=== PATIENT | female | born 1960 | race African-American/Black ===

== ENCOUNTER → 2018-05-05 | Outpatient (CLI) | payer BC ==
[2014-12-29 12:20] VITALS: BP 123/71
[~2018-05-05] MED LIST: ALBU6.7H IH; ALBU8.5H6 IH; CALC-250 PO; CEFT1FRO2 IV; CYCL5TAB PO; GABA-585 PO; HYDR-2762 PO; LISI-334 PO; METH-37 PO; METH4TAB2 PO; OMEP20CA9 PO; ORPH-16 PO; PANT20TA3 PO; POTA10CA PO; PRED50TA PO; TRAM50TA PO; VANC1.5P20 IV
--- NOTE | 2018-05-05 13:25 | RAD ---
EXAM: Abdomen sonogram. HISTORY: Bloating. TECHNIQUE: Sonographic imaging of the abdomen was performed. COMPARISON: CT dated 06/04/2016. FINDINGS: The liver is normal in size. There is a 1.0 cm hepatic cyst. No suspicious hepatic lesion is seen. There is slight hepatic steatosis. The gallbladder is unremarkable. The common bile duct is normal in caliber. The right kidney is normal in size. There is no hydronephrosis. The pancreas is partially obscured due to bowel gas. The inferior vena cava is patent. The aorta is normal in caliber. IMPRESSION: 1. Slight hepatic steatosis. 2. Small hepatic cyst. 3. Partially obscured pancreas due to bowel gas. Electronically signed by: Marleni Archuleta MD (05/05/2018 1:22 PM) [facility]
== END | disposition home or self-care (01) ==
LOC: US 08:55
PROVIDERS: ATTEND Internal Medicine Gastroenterology
DX: K76.89 Other specified diseases of liver (principal); J44.9 Chronic obstructive pulmonary disease, unspecified; Z83.3 Family history of diabetes mellitus; Z80.0 Family history of malignant neoplasm of digestive organs; Z82.49 Family history of ischemic heart disease and other diseases of the circulatory system
CPT/HCPCS: 76705

== ENCOUNTER → 2018-07-04 | Day surgery (SDC) | payer BC ==
[~2018-07-04] MED LIST changes: +ALBUTEROL SULFATE 2.5 MG/3 ML NEBU. NEB PRN; +ATROPINE 0.5 MG/5 ML DISP.SYRIN. IV PRN; +DICL75TA PO; +FURO-69 PO; +HYDR-2758 PO; +IV RINGERS SOLUTION,LACTATED 1,000 ML IV SCH; +LIDOCAINE 2% PF Vial for OR 5 ML VIAL. ONE; +NALOXONE 0.4 MG/ML VIAL. IV PRN; +ONDANSETRON PF 4 MG/2 ML VIAL. IV PRN; +PROPOFOL 40 ML IV ONE; +TIZA4TAB PO
[2018-07-04 14:16] VITALS: BP 119/79
== END | disposition home or self-care (01) ==
LOC: SURG 12:53
PROVIDERS: ATTEND Internal Medicine Gastroenterology
DX: K21.9 Gastro-esophageal reflux disease without esophagitis (principal); I10 Essential (primary) hypertension; J45.909 Unspecified asthma, uncomplicated; E03.9 Hypothyroidism, unspecified; Z86.010 Personal history of colon polyps; Z98.51 Tubal ligation status; Z88.1 Allergy status to other antibiotic agents; Z88.2 Allergy status to sulfonamides; Z88.8 Allergy status to other drugs, medicaments and biological substances; Z80.0 Family history of malignant neoplasm of digestive organs; Z98.890 Other specified postprocedural states
CPT/HCPCS: 43239; J7120

== ENCOUNTER → 2018-08-29 | Outpatient (CLI) | payer BC ==
[2018-07-04 14:16] VITALS: BP 119/79
[~2018-08-29] VITALS: Ht 160 cm; Wt 70.8 kg
[~2018-08-29] MED LIST changes: +ALBU2.5V8 IH; -ALBU6.7H IH; -ALBUTEROL SULFATE 2.5 MG/3 ML NEBU. NEB PRN; -ATROPINE 0.5 MG/5 ML DISP.SYRIN. IV PRN; +HYDR-2155 PO; -HYDR-2758 PO; -HYDR-2762 PO; +HYDR-2765 PO; -IV RINGERS SOLUTION,LACTATED 1,000 ML IV SCH; -LIDOCAINE 2% PF Vial for OR 5 ML VIAL. ONE; -NALOXONE 0.4 MG/ML VIAL. IV PRN; -ONDANSETRON PF 4 MG/2 ML VIAL. IV PRN; -PROPOFOL 40 ML IV ONE; +SINCALIDE 1.42 MCG in IV NORMAL SALINE 50ML 30 ML IV ONE
--- NOTE | 2018-08-29 12:06 | RAD ---
EXAM: Nuclear hepatobiliary scan. HISTORY: Pain. TECHNIQUE: Following intravenous administration of 5.4 mCi Tc 99m Choletec, anterior images of the abdomen were obtained at five minute intervals through one hour. Subsequently, 1.42 mcg CCK was administered and additional images to assess gallbladder ejection fraction were obtained. FINDINGS: There is prompt radiotracer uptake by the liver. No focal defect is seen. There is normal excretion into the biliary tree. The gallbladder is visualized within 10 minutes and there is free flow into the duodenum. The gallbladder ejection fraction is 31%. IMPRESSION: Normal radionuclide biliary scan. Electronically signed by: Marleni Archuleta MD (08/29/2018 12:02 PM) [facility]
== END | disposition home or self-care (01) ==
LOC: NM 08:59
PROVIDERS: ATTEND Internal Medicine Gastroenterology
DX: R14.0 Abdominal distension (gaseous) (principal); R10.84 Generalized abdominal pain; R10.13 Epigastric pain
CPT/HCPCS: 78227; A9537; J2805

== ENCOUNTER → 2018-09-05 | Outpatient (CLI) | payer BC ==
[2018-07-04 14:16] VITALS: BP 119/79
[~2018-09-05] MED LIST changes: -SINCALIDE 1.42 MCG in IV NORMAL SALINE 50ML 30 ML IV ONE
--- NOTE | 2018-09-06 08:59 | RAD ---
Radionuclide gastric emptying study, 09/05/2018: HISTORY: Epigastric pain and bloating The study was performed utilizing a solid test meal radiolabeled with 2.0 mCi of technetium 99m sulfur colloid. The following gastric retention values were obtained: 1 hour-98 percent (normal is less than 90 percent) 2 hours-64 percent (normal is less than 60 percent) 3 hours-30 percent (normal is less than 30 percent) 4 hours-19 percent (normal is less than 10 percent) IMPRESSION: Mildly delayed gastric emptying as described above. Electronically signed by: Tomás Fung MD (09/06/2018 8:54 AM) [facility]
== END | disposition home or self-care (01) ==
LOC: NM 08:45
PROVIDERS: ATTEND Internal Medicine Gastroenterology
DX: K30 Functional dyspepsia (principal)
CPT/HCPCS: 78264; A9541

== ENCOUNTER 2018-09-30 02:59 | Inpatient (IN) | payer BC ==
[2018-09-30] VITALS (7 sets, daily range): BP systolic 101–144; BP diastolic 67–85
[~2018-09-30] VITALS: Ht 160 cm; Wt 68.7 kg
[~2018-09-30 02:59] MED LIST changes: +OMEP20CA10 PO; -OMEP20CA9 PO; -TIZA4TAB PO; +TIZA4TAB2 PO
[2018-09-30] MEDS ORDERED: IV NORMAL SALINE 1,000ML 1,000 ML IV ONE (03:15)
--- NOTE | 2018-09-30 03:47 | PHYS DOC ---
Past History Past Medical History: GERD, Other Past Surgical History: Other Alcohol Use: None Drug Use: None Adult General Chief Complaint Chief Complaint: MECHANICAL FALL HPI HPI Patient is a 58 year old female who presents with complaint of a possible syncopal episode. Patient states that she awoke this morning stating that she did not feel well. The patient tried to get up and go use the restroom and became very lightheaded and dizzy. She states that she called out to her daughter to try to get help. She states the next thing she knew she was on the floor. Patient states that she scratched her elbow but otherwise denies any pain at this time. Patient does state that she is very lightheaded and feels sick to her stomach. Patient notes that over the past 24 hours she has had worsening diarrhea and has had too numerous to count stools during that time. Patient states that she has tried to keep up with her fluid intake. Denies vomiting. Not currently having any abdominal pain or chest pain. States that she has felt feverish but has not measured her temperature at home. Review of Systems Review of Systems Constitutional: Subjective fevers[] Eyes: Denies change in visual acuity, redness, or eye pain [] HENT: Denies nasal congestion or sore throat [] Respiratory: Denies cough or shortness of breath [] Cardiovascular: Denies chest pain or edema[] GI: Nausea, diarrhea, denies abdominal pain or vomiting[] : Denies dysuria or hematuria [] Musculoskeletal: Denies back pain or joint pain [] Integument: Denies rash or skin lesions [] Neurologic: Dizziness, denies focal weakness or sensory changes [] All other systems were reviewed and found to be within normal limits, except as documented in this note. Current Medications Current Medications Current Medications Medications (Trade) Dose Ordered Sig/Cassi Start Time Stop Time Status Last Admin Dose Admin Sodium Chloride 1,000 ml @ 1,000 mls/hr 1X ONCE 09/30/18 03:15 09/30/18 04:14 Allergies Allergies Allergies Coded Allergies Type Severity Reaction Last Updated Verified SCOTT Inhibitors Allergy Intermediate Swelling 09/30/18 Yes Sulfa (Sulfonamide Antibiotics) Allergy Intermediate Rash 09/30/18 Yes erythromycin base Allergy Intermediate 09/30/18 Yes vancomycin Adverse Reaction Intermediate Swelling 09/30/18 Yes Physical Exam Physical Exam Constitutional: Alert, afebrile, appears ill. [] HENT: Normocephalic, atraumatic, bilateral external ears normal, oropharynx dry , no oral exudates, nose normal. [] Eyes: PERRLA, EOMI, conjunctiva normal, no discharge. [] Neck: Normal range of motion, no tenderness, supple, no stridor. [] Cardiovascular: Bradycardia, regular rhythm, no murmur [] Lungs & Thorax: Bilateral breath sounds clear to auscultation [] Abdomen: Bowel sounds normal, soft, no tenderness, no masses, no pulsatile masses. [] Skin: Warm, dry, no erythema, no rash. [] Back: No tenderness, no CVA tenderness. [] Extremities: No tenderness, no cyanosis, no clubbing, ROM intact, no edema. [] Neurologic: Alert and oriented X 3, normal motor function, normal sensory function, no focal deficits noted. [] Current Patient Data Vital Signs Reviewed by me: Patient noted to be hypotensive and bradycardic Lab Results Laboratory Tests Test 09/30/18 03:30 White Blood Count 10.5 x10^3/uL Red Blood Count 4.83 x10^6/uL Hemoglobin 11.9 g/dL Hematocrit 37.5 % Mean Corpuscular Volume 78 fL Mean Corpuscular Hemoglobin 25 pg Mean Corpuscular Hemoglobin Concent 32 g/dL Red Cell Distribution Width 16.2 % Platelet Count 266 x10^3/uL Neutrophils (%) (Auto) 59 % Lymphocytes (%) (Auto) 31 % Monocytes (%) (Auto) 8 % Eosinophils (%) (Auto) 2 % Basophils (%) (Auto) 0 % Neutrophils # (Auto) 6.2 x10^3uL Lymphocytes # (Auto) 3.2 x10^3/uL Monocytes # (Auto) 0.9 x10^3/uL Eosinophils # (Auto) 0.2 x10^3/uL Basophils # (Auto) 0.0 x10^3/uL Sodium Level 143 mmol/L Potassium Level 2.4 mmol/L Chloride Level 105 mmol/L Carbon Dioxide Level 29 mmol/L Anion Gap 9 Blood Urea Nitrogen 16 mg/dL Creatinine 0.8 mg/dL Estimated GFR (Cockcroft-Gault) 89.8 BUN/Creatinine Ratio 20 Glucose Level 108 mg/dL Calcium Level 8.0 mg/dL Magnesium Level 1.9 mg/dL Total Bilirubin 0.2 mg/dL Aspartate Amino Transf (AST/SGOT) 16 U/L Alanine Aminotransferase (ALT/SGPT) 29 U/L Alkaline Phosphatase 84 U/L Total Protein 7.8 g/dL Albumin 3.2 g/dL Albumin/Globulin Ratio 0.7 Current Medications Medications (Trade) Dose Ordered Sig/Cassi Route PRN Reason Start Time Stop Time Status Last Admin Dose Admin Sodium Chloride 1,000 ml @ 1,000 mls/hr 1X ONCE IV 09/30/18 03:15 09/30/18 04:15 DC Diphenhydramine HCl (Benadryl) 12.5 mg 1X ONCE IVP 09/30/18 04:15 09/30/18 04:16 DC Potassium Chloride (Klor-Con) 40 meq 1X ONCE PO 09/30/18 04:15 09/30/18 04:16 UNV EKG EKG Interpreted by me: Heart rate 50, sinus bradycardia, normal intervals, normal axis, no acute ST/T-wave abnormalities present[] Radiology/Procedures Radiology/Procedures Not performed[] Course & Med Decision Making Course & Med Decision Making Pertinent Labs and Imaging studies reviewed. (See chart for details) Patient started on IV fluids in the emergency department. Patient's lab work showed a critically low potassium level at 2.4. After initiation of IV fluids, the patient's blood pressure has improved to 134/54. Given the very low potassium level in addition to patient's lightheadedness and recent syncopal episode, the patient will need admission to the hospital for re-supplementation of potassium and for rehydration. I spoke with Dr. Rico, patient's primary physician, who has accepted care of patient in hospital. Dragon Disclaimer Dragon Disclaimer This electronic medical record was generated, in whole or in part, using a voice recognition dictation system. Departure Departure: Impression: Primary Impression: Syncope Additional Impressions: Hypokalemia Dehydration Disposition: 09 ADMITTED INPATIENT Admitting Physician: Zakia Rico Condition: STABLE Referrals: ZAKIA RICO MD (PCP) Problem Qualifiers Primary Impression: Syncope Syncope type: unspecified Qualified Codes: R55 - Syncope and collapse AUSTIN TERRY MD Sep 30, 2018 03:47
[2018-09-30 03:49] LABS: BASO % 0 % (0-3); EOS # 0.2 x10^3/uL (0.0-0.7); EOS % 2 % (0-3); HEMATOCRIT 37.5 % (36.0-47.0); HEMOGLOBIN 11.9 g/dL (12.0-15.5); LYMPH # 3.2 x10^3/uL (1.0-4.8); LYMPH % 31 % (24-48); MEAN CORPUSCULAR HEMOGLOBIN 25 pg (25-35); MEAN CORPUSCULAR HGB CONC 32 g/dL (31-37); MEAN CORPUSCULAR VOLUME 78 fL (79-100); MONO # 0.9 x10^3/uL (0.0-1.1); MONO % 8 % (0-9); NEUT # 6.2 x10^3uL (1.8-7.7); NEUT % 59 % (31-73); PLATELET COUNT 266 x10^3/uL (140-400); RED BLOOD COUNT 4.83 x10^6/uL (3.50-5.40); RED CELL DISTRIBUTION WIDTH 16.2 % (11.5-14.5); WHITE BLOOD COUNT 10.5 x10^3/uL (4.0-11.0)
[2018-09-30 04:01] LABS: ALBUMIN 3.2 g/dL (3.4-5.0); ALBUMIN/GLOBULIN RATIO 0.7 (1.0-1.7); CREATININE 0.8 mg/dL (0.6-1.0); GFR 89.8; TOTAL BILIRUBIN 0.2 mg/dL (0.2-1.0); TOTAL PROTEIN 7.8 g/dL (6.4-8.2)
[2018-09-30 04:03] LABS: POTASSIUM 2.4 mmol/L (3.5-5.1)
[2018-09-30] MEDS ORDERED: POTASSIUM CHLORIDE 20 MEQ TABLET.ER. PO ONE ×2 (04:15→04:36)
[2018-09-30] MEDS ORDERED: diphenhydrAMINE 50 MG/ML VIAL IVP ONE (04:15)
[2018-09-30] MEDS ORDERED: ONDANSETRON PF 4 MG/2 ML VIAL. IV PRN (04:30)
[2018-09-30] MEDS ORDERED: ACETAMINOPHEN 325 MG TABLET PO PRN (04:30)
[2018-09-30] MEDS ORDERED: POTASSIUM CL 20MEQ D5-0.45NACL 1,000 ML IV ONE ×2 (04:30→04:36)
[2018-09-30] MEDS ORDERED: ONDANSETRON PF 4 MG/2 ML VIAL. ONE (04:36)
[2018-09-30] MEDS ORDERED: ACETAMINOPHEN 325 MG TABLET PO ONE (04:36)
[2018-09-30 05:33] LABS: BACTERIA,URINE FEW /HPF (0-FEW); BILIRUBIN,URINE NEG (NEG); CLARITY,URINE CLEAR; COLOR,URINE STRAW; GLUCOSE,URINE NEG (NEG); HYALINE CASTS, URINE OCC /HPF; NITRITE,URINE NEG (NEG); RBC,URINE OCC /HPF (0-2); SQUAMOUS EPITHELIAL CELL,UR OCC /LPF; UROBILINOGEN,URINE 0.2 mg/dL (0.2 mg/dL)
[2018-09-30] MEDS ORDERED: GABA-585 PO (05:34)
--- NOTE | 2018-09-30 06:14 | EKG ---
[address] [address] Test Date: 2018-09-30 Test Time: 03:16:13 Pat Name: JESSE CHOI Department: Room: 122 A Gender: F Clinical Informatics Specialist: RHETT : 1960 Requested By: AUSTIN TERRY Order Number: [id number] Reading MD: Kings Griffin MD Measurements Intervals [place] Rate: 50 P: 51 [place]: 138 QRS: 31 QRSD: 78 T: 78 QT: 466 QTc: 428 Interpretive Statements SINUS RHYTHM NON-SPECIFIC ST/T CHANGES Electronically Signed On 10-05-2018 9:40:56 MEDICATION TECH by Kings Griffin MD
[2018-09-30] MEDS ORDERED: PRED20TA PO (07:34)
[2018-09-30] MEDS ORDERED: ELECTROLYTE (ICU) PROTOCOL. MC PRN (09:00)
[2018-09-30] MEDS: predniSONE 20 MG TABLET PO SCH (09:00)
[2018-09-30] MEDS ORDERED: HYDROcodone/APAP 5/325MG 1 TAB TABLET PO PRN ×2 (09:00→12:45)
[2018-09-30] MEDS ORDERED: FUROSEMIDE 20 MG TABLET PO SCH (09:00)
[2018-09-30] MEDS ORDERED: ALBUTEROL SULFATE 2.5 MG/3 ML NEBU. IH PRN (09:00)
[2018-09-30] MEDS: GABAPENTIN 100 MG CAPSULE. PO SCH ×3 (09:30→21:00)
[2018-09-30] MEDS ORDERED: CYCLOBENZAPRINE 10 MG TABLET. PO PRN (09:45)
[2018-09-30] MEDS ORDERED: PANTOPRAZOLE 40 MG TABLET. PO SCH (09:45)
[2018-09-30] MEDS ORDERED: tiZANidine 4 MG TABLET. PO PRN (09:45)
[2018-09-30] MEDS ORDERED: DICLOFENAC SODIUM 25 MG TABLET.DR PO SCH (09:45)
[2018-09-30] MEDS ORDERED: ACETAMINOPHEN/CODEINE 300/30MG TABLET PO PRN (12:30)
[2018-09-30] MEDS ORDERED: ONDANSETRON ODT 4 MG TAB.RAPDIS PO PRN (12:30)
[2018-09-30] MEDS ORDERED: DIPHENOXYLATE/ATROPINE TABLET. PO PRN (12:30)
[2018-09-30] MEDS ORDERED: ZOLPIDEM 5 MG TABLET. PO PRN (12:45)
[2018-09-30] MEDS ORDERED: IOHEXOL 350 MG/ML 100 ML VIAL. IV ONE ×2 (13:45→15:45)
[2018-09-30] MEDS ORDERED: CONTRAST GIVEN MC PRN (13:45)
[2018-09-30] MEDS ORDERED: IOHEXOL 300 MG/ML 75 ML VIAL. IV ONE (13:45)
[2018-09-30] MEDS ORDERED: IOHEXOL 240 MG/ML 50ML VIAL. PO ONE (13:45)
[2018-09-30 15:23] LABS: FECAL OB PT NEGATIVE (NEG)
--- NOTE | 2018-09-30 16:22 | RAD ---
CT abdomen and pelvis with contrast PQRS statement: CT scans at this facility use dose reduction including either automated exposure control, iterative reconstructions, and /or weight based radiation dosing via mA and kV modification when appropriate to reduce radiation dose to as low as reasonably achievable. HISTORY: Syncope, chest and abdomen pain, elevated d-dimer and diarrhea. TECHNIQUE: Helical CT imaging of the abdomen and pelvis was acquired with 100 mL Isovue 370 intravenous contrast. Abdomen findings: Lower lumbar disc bulges and facet arthritis. Lung bases unremarkable. Mild distention of the right renal upper pole calyces although similar the prior exam from 2016 of doubtful significance. No hydronephrosis. No abnormal nephrogram. Subcentimeter right renal midpole hypodensity too small to characterize most likely small cyst. Left kidney, adrenals, pancreas, gallbladder, liver and spleen are unremarkable. Fluid and contrast throughout the large and small bowel, no wall thickening or inflammatory edema evident. No bowel obstruction. Appendix is surgically absent or hypoplastic and obscured by surrounding bowel loops. No abdominal fluid or adenopathy. Pelvis findings: Fluid throughout the rectosigmoid colon without inflammatory change. Uterus, ovaries, bladder and bones are unremarkable. No pelvic fluid or adenopathy. IMPRESSION: Fluid throughout the large and small bowel without obstruction or inflammatory change, could be related to the history of diarrhea or low-grade enterocolitis. Electronically signed by: Carlito Benitez MD (09/30/2018 4:17 PM) [facility] [place]
--- NOTE | 2018-09-30 16:22 | RAD ---
CTA scan of the Chest with Contrast (Pulmonary Embolism protocol) 09/30/2018 Clinical History: Syncope. Chest pain. Elevated d-dimer. Technique: After the intravenous administration of 75 cc of Omnipaque 300, contiguous, 0.625 mm axial sections were obtained through the chest. 2 mm axial and 3D MIP coronal and coronal reconstructed images were obtained. One or more of the following individualized dose reduction techniques were utilized for this study: 1. Automated exposure control. 2. Adjustment of the mA and/or kV according to patient size. 3. Use of iterative reconstruction technique. Findings: There is suboptimal opacification of the pulmonary arteries with contrast limiting the study to some degree. No filling defect is seen within the major branches of either pulmonary artery. There is no CT evidence of pulmonary embolism. The heart is borderline enlarged. The thoracic aorta is tortuous but tapers normally. Atherosclerotic calcification thoracic aorta is seen. Minimal dependent subsegmental atelectasis is seen involving both lungs. No area of consolidation, pleural effusion or pneumothorax is seen. Impression: There is no CT evidence of pulmonary embolism. Electronically signed by: Chaim Coelol MD (09/30/2018 4:17 PM) [facility]
--- NOTE | 2018-09-30 16:33 | RAD ---
Left elbow x-rays 3 views HISTORY: Fall on left elbow, left elbow pain with abrasions. FINDINGS: No abnormal elevation of the fat pads to suggest a joint effusion. Small bone spur of the ulna coronoid. Mild osteophytic ridging of the radial head. No fracture or dislocation. The soft tissues are unremarkable. IMPRESSION: No acute osseous injury of the left elbow. Electronically signed by: Carlito Benitez MD (09/30/2018 4:28 PM) [facility]
[2018-09-30] MEDS: POTASSIUM CHLORIDE 30 MEQ in IV 1/2 NORMAL SALINE 1,000 ML IV SCH ×2 (18:11→21:08)
[2018-09-30] MEDS: HYDROmorphone PF 1 MG/ML DISP.SYRIN IV PRN (18:12)
--- NOTE | 2018-09-30 19:49 | HP ---
ADMIT DATE: 09/30/2018 HISTORY OF PRESENT ILLNESS: A 58-year-old female who comes in. Apparently, she has been falling at home, feeling lightheaded, and dizzy. The patient tried to go to the bathroom, extremely lightheaded, nearly fell to the floor. The patient did fall and struck her left elbow. The patient was seen by her daughter and as a result of this, was brought into the Emergency Room where she was found to have low potassium of 2.4, critically low. The patient was admitted for her syncopal spells or falls and contusion in the left elbow as well as hypokalemia. She also had markedly elevated D-dimer. X-rays of the left elbow showed no acute problem although she did have skin breakdown and a CTA of the chest because of D-dimer was negative; however, the patient was having severe bouts of diarrhea, she could not keep anything in. Everything passes right through her and she has been noted extremely lightheaded and needed to get her potassium back into range. PAST MEDICAL HISTORY: Peripheral neuropathy, especially to the left arm and shoulder area, headache, hypertension, asthma, history of gastroparesis, esophageal strictures, esophageal reflux, tubal ligation, sciatica, muscle spasms, gout, lower back pain. IMMUNIZATIONS: Up-to-date for influenza, pneumococcal. FAMILY HISTORY: Positive for hypertension in 2 brothers, mother and sister, diabetes in 2 brothers and her mother. ALLERGIES: The patient has adverse effects to SCOTT INHIBITORS, SULFUR, ERYTHROMYCIN BASE COMPOUNDS, and VANCOMYCIN. CODE STATUS: The patient is a full code. SOCIAL HISTORY: The patient denies smoking, alcohol or drug use. MEDICATIONS: Reconciled in the chart and duly noted. See those. REVIEW OF SYSTEMS: The patient denies any headaches, visual change, blurred vision, double vision. Denies any melena, hematochezia, or hematemesis and neurologically stable. The patient does have some nausea and had had some vomiting at home and severe diarrhea, probably 10 in the last day or so, passing through her. The patient also notes that it is explosive. She denies any melena or hematochezia with the diarrhea that she was having. PHYSICAL EXAMINATION: GENERAL: This is an ill-appearing black female, in very moderate amount of distress. VITAL SIGNS: Blood pressure 144/83, respiratory rate in the 20s, pulse as low as 50, temperature afebrile, good oxygen saturation. HEENT: Head is atraumatic, normocephalic. Eyes: PERRLA without jaundice. Mouth and throat shows dry mucous membranes. NECK: Supple, without JVD, carotid bruits or thyromegaly. LUNGS: Diminished throughout, poor movement of air, but clear. CARDIOVASCULAR: Regular sinus rhythm. Left elbow swollen and tender from the fall she had taken. ABDOMEN: The patient's abdomen was soft, bloated, distended, very active bowel sounds, markedly tender to palpation. Slight guarding, but no rebounding noted. No hepatosplenomegaly. No masses noted. Stool hemoccult negative. EXTREMITIES: No clubbing, cyanosis, nor edema. NEUROLOGIC: The patient was alert and oriented x 3. The patient otherwise neurologically alert and oriented x 3. Speech fluent, spontaneous, appropriate. Cranial nerves 2-12 are grossly intact. LABORATORY DATA: As described as earlier. Her CTA of the chest because of the positive D-dimer and the syncope were unremarkable. IMPRESSION: Therefore, syncope; contusion, left elbow; severe diarrhea, not controlled with oral medications from [id number]; dehydration; hypokalemia; mild protein malnutrition; abdominal discomfort. PLAN: Continue to monitor the patient and currently make further evaluation on her as indicated. Fluids, potassium supplementation, and make further evaluation on her electrolytes. ZAKIA STARKEY MD DR: RASHMI/sly JOB#: [id number] / [id number]
[2018-09-30] MEDS ORDERED: FAMOTIDINE 20 MG/2 ML VIAL IVP SCH (21:00)
[2018-09-30] MEDS: ENOXAPARIN ** NOTE DOSE ** SYRINGE SQ SCH (21:05)
[2018-10-01 02:44] VITALS: BP 114/60
[2018-10-01] MEDS: HYDROmorphone PF 1 MG/ML DISP.SYRIN IV PRN ×2 (05:05→23:25)
[2018-10-01 05:41] VITALS: BP 102/65
[2018-10-01] MEDS: POTASSIUM CHLORIDE 30 MEQ in IV 1/2 NORMAL SALINE 1,000 ML IV SCH ×2 (06:54→08:50)
[2018-10-01 07:33] LABS: BASO % 0 % (0-3); EOS # 0.1 x10^3/uL (0.0-0.7); EOS % 1 % (0-3); HEMATOCRIT 38.8 % (36.0-47.0); HEMOGLOBIN 11.9 g/dL (12.0-15.5); LYMPH # 1.8 x10^3/uL (1.0-4.8); LYMPH % 18 % (24-48); MEAN CORPUSCULAR HEMOGLOBIN 25 pg (25-35); MEAN CORPUSCULAR HGB CONC 31 g/dL (31-37); MEAN CORPUSCULAR VOLUME 81 fL (79-100); MONO # 0.6 x10^3/uL (0.0-1.1); MONO % 6 % (0-9); NEUT # 7.4 x10^3uL (1.8-7.7); NEUT % 75 % (31-73); PLATELET COUNT 236 x10^3/uL (140-400); WHITE BLOOD COUNT 9.9 x10^3/uL (4.0-11.0)
[2018-10-01 07:43] LABS: CALCIUM 7.9 mg/dL (8.5-10.1); CREATININE 0.7 mg/dL (0.6-1.0); GFR 104.7
[2018-10-01 07:59] LABS: POTASSIUM 2.8 mmol/L (3.5-5.1)
[2018-10-01] MEDS: POTASSIUM CHLORIDE 10 MEQ TABLET.ER. PO SCH (08:00)
[2018-10-01] MEDS: GABAPENTIN 100 MG CAPSULE. PO SCH ×3 (08:47→21:03)
[2018-10-01] MEDS: predniSONE 20 MG TABLET PO SCH (08:47)
[2018-10-01] MEDS: ENOXAPARIN ** NOTE DOSE ** SYRINGE SQ SCH ×2 (08:48→21:03)
[2018-10-01] MEDS: POTASSIUM CHLORIDE 20MEQ 100 ML IV SCH ×3 (08:54→23:27)
[2018-10-01] MEDS ORDERED: DICYCLOMINE HCL 10 MG CAPSULE PO PRN (10:15)
[2018-10-01 10:33] VITALS: BP 107/70
[2018-10-01 15:59] VITALS: BP 102/59
[2018-10-01 19:02] VITALS: BP 120/71
[2018-10-01] MEDS: FAMOTIDINE 20 MG/2 ML VIAL IVP SCH ×2 (21:00→21:02)
[2018-10-01] MEDS: PROMETH/CODEINE 6.25/10MG 5 ML SYRUP. PO PRN (21:03)
[2018-10-01 22:52] VITALS: BP 114/69
--- NOTE | 2018-10-02 00:08 | PN ---
DATE: SUBJECTIVE: A 58-year-old female in with severe unrelenting diarrhea. C. diff came back negative. The patient's potassium still low at 2.8. We are giving her IV potassium. Her D-dimer was elevated over 5, but her CTA was negative for any signs of pulmonary embolus. The patient is still pretty miserable with her diarrhea and what she describes as a spastic type situation. OBJECTIVE: VITAL SIGNS: Blood pressure 102/60, respiratory rate 20, pulse 80, afebrile. GENERAL: The patient is alert and oriented x 3, but looking uncomfortable. LUNGS: Diminished throughout, but clear. CARDIOVASCULAR: Stable. ABDOMEN: Soft, distended. Tenderness noted, guarding, primarily in the lower abdominal area and down the outline of the colon. No rebounding. However, the patient is otherwise stable. LABORATORY DATA: Sodium 140, potassium of only 2.8. We will need to recheck that in the morning and make further evaluation as she gets additional electrolyte protocol replacement therapy. In any case, the patient was given some Bentyl for her spasticity. C. diff was negative. IMPRESSION: Severe diarrhea, severe hypokalemia, abdominal pain, anemia of chronic disease, mild protein malnutrition, elevated D-dimer. PLAN: Continue to hydrate and make further evaluation on her as indicated. ZAKIA STARKEY MD DR: RASHMI/sly JOB#: [id number] / [id number]
[2018-10-02] MEDS: POTASSIUM CHLORIDE 30 MEQ in IV 1/2 NORMAL SALINE 1,000 ML IV SCH ×3 (00:43→14:11)
[2018-10-02] MEDS: POTASSIUM CHLORIDE 20MEQ 100 ML IV SCH (02:49)
[2018-10-02 05:51] VITALS: BP 95/61
[2018-10-02] MEDS ORDERED: IV NORMAL SALINE 500ML 500 ML IV ONE (06:15)
[2018-10-02 06:25] LABS: CALCIUM 8.1 mg/dL (8.5-10.1); CREATININE 0.7 mg/dL (0.6-1.0); GFR 104.7; POTASSIUM 3.4 mmol/L (3.5-5.1)
[2018-10-02] MEDS: HYDROmorphone PF 1 MG/ML DISP.SYRIN IV PRN (06:31)
[2018-10-02 06:43] LABS: BASO % 0 % (0-3); EOS # 0.2 x10^3/uL (0.0-0.7); EOS % 2 % (0-3); HEMATOCRIT 35.1 % (36.0-47.0); HEMOGLOBIN 11.3 g/dL (12.0-15.5); LYMPH # 2.2 x10^3/uL (1.0-4.8); LYMPH % 26 % (24-48); MEAN CORPUSCULAR HEMOGLOBIN 25 pg (25-35); MEAN CORPUSCULAR HGB CONC 32 g/dL (31-37); MEAN CORPUSCULAR VOLUME 77 fL (79-100); MONO # 0.7 x10^3/uL (0.0-1.1); MONO % 8 % (0-9); NEUT # 5.2 x10^3uL (1.8-7.7); NEUT % 63 % (31-73); PLATELET COUNT 274 x10^3/uL (140-400); RED BLOOD COUNT 4.59 x10^6/uL (3.50-5.40); WHITE BLOOD COUNT 8.2 x10^3/uL (4.0-11.0)
--- NOTE | 2018-10-02 09:55 | CARD ---
MR#: [id number] Date of Study: 10/02/2018 Ordering Physician: ZAKIA STARKEY, Referring Physician: ZAKIA STARKEY, Tech: Geovanna Coyne RDCS APPROVED REPORT EXAM: Two-dimensional and M-mode echocardiogram with Doppler and color Doppler. Other Information Quality : GoodHR: 57bpm Rhythm : NSR INDICATION Syncope 2D DIMENSIONS RVDd2.9 (2.9-3.5cm)Left Atrium(2D)3.1 (1.6-4.0cm) IVSd0.8 (0.7-1.1cm)Aortic Root(2D)2.6 (2.0-3.7cm) LVDd4.9 (3.9-5.9cm)LVOT Diameter2.0 (1.8-2.4cm) PWd0.8 (0.7-1.1cm)LVDs3.2 (2.5-4.0cm) FS (%) 35.0 %SV73.3 ml LVEF(%)64.0 (>50%) M-Mode DIMENSIONS Left Atrium(MM)3.25 (2.5-4.0cm)Aortic Root2.76 (2.2-3.7cm) Aortic Valve AoV Peak Esvin.157.5cm/sAoV VTI31.2cm AO Peak GR.9.9mmHgLVOT Peak Esvin.104.1cm/s LVOT VTI 23.71cmAO Mean GR.5mmHg CHRISTIANO (VMAX)1.65qr6IGZ (VTI)2.28cm2 Mitral Valve MV E Bwtrabrb678.5cm/sMV DECEL [id number] MV A Hsgvqwrn48.2cm/sE/A Ratio1.5 MV A [id number] Pulmonary Valve PV Peak Cdzfzmko795.6cm/sPV Peak Grad.7mmHg Tricuspid Valve TR P. [id number]/sRAP MDBLFNKD6vwFa TR Peak Gr.26qxNpIYFC69emJf LEFT VENTRICLE The left ventricle is normal size. There is normal left ventricular wall thickness. The left ventricu lar systolic function is normal and the ejection fraction is within normal range. The Ejection Fracti on is 60-65%. There is normal LV segmental wall motion. Transmitral Doppler flow pattern is normal fo r age. RIGHT VENTRICLE The right ventricle is normal size. There is normal right ventricular wall thickness. The right ventr icular systolic function is normal. ATRIA The left atrium size is normal. The right atrium size is normal. The interatrial septum is intact wit h no evidence for an atrial septal defect or patent foramen ovale as noted on 2-D or Doppler imaging. AORTIC VALVE The aortic valve is normal in structure and function. The aortic valve is trileaflet. Doppler and Col or Flow revealed no significant aortic regurgitation. There is no significant aortic valvular stenosi s. MITRAL VALVE The mitral valve is normal in structure and function. There is no evidence of mitral valve prolapse. There is no mitral valve stenosis. Doppler and Color-flow revealed trace mitral regurgitation. TRICUSPID VALVE The tricuspid valve is normal in structure and function. Doppler and Color Flow revealed mild tricusp id regurgitation. There is moderate pulmonary hypertension. The PA pressure was estimated at 48 mmHg. There is no tricuspid valve prolapse or vegetation. There is no tricuspid valve stenosis. PULMONIC VALVE Doppler and Color Flow revealed no pulmonic valvular regurgitation. There is no pulmonic valvular wander nosis. GREAT VESSELS The aortic root is normal in size. The ascending aorta is normal in size. The IVC is normal in size a nd collapses >50% with inspiration. PERICARDIAL EFFUSION There is no evidence of significant pericardial effusion. Critical Notification Critical Value: No <Conclusion> The left ventricular systolic function is normal and the ejection fraction is within normal range. Th e Ejection Fraction is 60-65%. There is normal LV segmental wall motion. Doppler and Color Flow revealed mild tricuspid regurgitation. There is moderate pulmonary hypertensio n. The PA pressure was estimated at 48 mmHg. Signed by : Kings Griffin, Electronically Approved : 10/02/2018 09:53:22
[2018-10-02] MEDS: POTASSIUM CHLORIDE 10 MEQ TABLET.ER. PO SCH (10:00)
[2018-10-02] MEDS: predniSONE 10 MG TABLET PO SCH (10:00)
[2018-10-02] MEDS: FAMOTIDINE 20 MG/2 ML VIAL IVP SCH (10:00)
[2018-10-02] MEDS: GABAPENTIN 100 MG CAPSULE. PO SCH ×3 (10:00→20:21)
[2018-10-02] MEDS: ENOXAPARIN ** NOTE DOSE ** SYRINGE SQ SCH ×2 (10:01→20:24)
[2018-10-02 11:14] VITALS: BP 107/72
--- NOTE | 2018-10-02 11:15 | PN ---
DATE: SUBJECTIVE: A 58-year-old female with severe diarrhea, severe hypokalemia, positive D-dimer. CTA was basically unremarkable. The patient is alert and oriented, feeling somewhat better this morning. OBJECTIVE: VITAL SIGNS: Blood pressure 95/60, respiration 16, pulse 63, afebrile. GENERAL: The patient is alert and oriented. LUNGS: Diminished, but clear. CARDIOVASCULAR: Regular sinus rhythm. ABDOMEN: Soft, but bloated, not quite as distended as it was. There is marked improvement, but cutter machine tender in that left mid to lower quadrant area. No doubt still from the viral gastroenteritis. LABORATORY DATA: Her potassium has come up gradually to 3.4 from 2.8 and she is making steady progress overall. C. diff was negative. Continue electrolyte replacement. We will start her on PT, OT to get her strength back up and hopefully discharge in the a.m. IMPRESSION: Severe gastroenteritis, severe hypokalemia, yjgp-gk-fihdztpg protein malnutrition, elevated D-dimer. PLAN: Continue to monitor the patient accordingly and make further evaluation on her as indicated. ZAKIA STARKEY MD DR: RASHMI/sly JOB#: [id number] / [id number]
[2018-10-02] MEDS: PROMETH/CODEINE 6.25/10MG 5 ML SYRUP. PO PRN (14:13)
[2018-10-02 14:54] VITALS: BP 101/63
[2018-10-02 19:44] VITALS: BP 108/66
[2018-10-02] MEDS: FAMOTIDINE 20 MG TABLET PO SCH (20:20)
[2018-10-02 22:40] VITALS: BP 105/65
[2018-10-03] MEDS: POTASSIUM CHLORIDE 30 MEQ in IV 1/2 NORMAL SALINE 1,000 ML IV SCH ×2 (01:35→09:22)
[2018-10-03 05:41] VITALS: BP 105/65
[2018-10-03 06:31] LABS: CALCIUM 7.8 mg/dL (8.5-10.1); CREATININE 0.6 mg/dL (0.6-1.0); GFR 125.1; POTASSIUM 3.7 mmol/L (3.5-5.1)
[2018-10-03] MEDS: predniSONE 10 MG TABLET PO SCH (08:00)
[2018-10-03] MEDS: GABAPENTIN 100 MG CAPSULE. PO SCH (08:01)
[2018-10-03] MEDS: FAMOTIDINE 20 MG TABLET PO SCH (08:01)
[2018-10-03] MEDS: POTASSIUM CHLORIDE 10 MEQ TABLET.ER. PO SCH (08:01)
[2018-10-03] MEDS: ENOXAPARIN ** NOTE DOSE ** SYRINGE SQ SCH (08:02)
[2018-10-03 10:50] VITALS: BP 127/82
[2018-10-03] MEDS ORDERED: PRED1TAB PO (12:19)
[2018-10-03] MEDS ORDERED: PRED5TAB PO (12:21)
--- NOTE | 2018-10-03 12:59 | PN ---
DATE: SUBJECTIVE: A 58-year-old female came in with severe abdominal pain and diarrhea, severe hypokalemia. The patient is resting fairly comfortably today. Her stools are slowing down. She is still having quite a bit of pain and making further evaluation on her as indicated. PHYSICAL EXAMINATION: VITAL SIGNS: Blood pressure 105/65, respiratory rate 20, pulse 61, afebrile. GENERAL: The patient is alert and oriented. LUNGS: Diminished, but clear. CARDIOVASCULAR: Stable. ABDOMEN: Soft, diffuse tenderness in her left lower quadrant improved, but still there. We will gradually advance her diet, make further evaluation on her as indicated. Continue with PT, OT and hopefully ready for discharge in the a.m. However, the patient is still very weak from her bouts of diarrhea. IMPRESSION: Therefore of severe gastroenteritis, severe hypokalemia, ndkn-cm-klmztwmj protein malnutrition, elevated D-dimer. ZAKIA STARKEY MD DR: RASHMI/sly JOB#: [id number] / [id number]
--- NOTE | 2018-10-26 11:20 | DS ---
DATE OF DISCHARGE: 10/03/2018 HOSPITAL COURSE: A 58-year-old female patient admitted on 09/30/2018 and she discharged on 10/03/2018. A 58-year-old -German female came in. She had been falling at home, feeling lightheaded and dizzy, tried to go to the bathroom, feeling extremely lightheaded, fell, struck her left elbow, was seen by her daughter, brought her to the Emergency Room. Potassium was critically low at 2.4, obviously her D-dimer was elevated and the patient continued to be monitored carefully. The patient had severe diarrhea as well. It was now controlled with [id number] medication. She was markedly dehydrated as well. She was given IV fluids. Potassium was supplemented to bring it up to 3.7. C. diff was negative. Hemoccult was negative. UA was unremarkable there. The patient was also seen by Cardiology. IMPRESSION: Severe gastroenteritis, severe hypokalemia, [id number] protein malnutrition, elevated D-dimer, contusion to the left elbow. DISCHARGE PLAN: The patient will be discharged home, follow up as an outpatient. She will be on a regular diet, decreased activity, and make further evaluation on her as indicated. ZAKIA STARKEY MD DR: RASHMI/sly JOB#: [id number] / [id number]
== END 2018-10-03 12:51 | disposition home or self-care (01) | DRG 392 ==
LOC: ER 02:59 → 1 SOUTH 04:16
PROVIDERS: ADMIT Family Medicine; ATTEND Family Medicine
DX: K52.9 Noninfective gastroenteritis and colitis, unspecified (principal); E44.0 Moderate protein-calorie malnutrition; M54.5 Low back pain; D63.8 Anemia in other chronic diseases classified elsewhere; Z68.26 Body mass index [BMI] 26.0-26.9, adult; E86.0 Dehydration; E87.6 Hypokalemia; I10 Essential (primary) hypertension; J45.909 Unspecified asthma, uncomplicated; K21.9 Gastro-esophageal reflux disease without esophagitis; S50.02XA Contusion of left elbow, initial encounter; Z82.49 Family history of ischemic heart disease and other diseases of the circulatory system; Z83.3 Family history of diabetes mellitus; M10.9 Gout, unspecified; W01.0XXA Fall on same level from slipping, tripping and stumbling without subsequent striking against object, initial encounter; Y93.89 Activity, other specified; Y92.098 Other place in other non-institutional residence as the place of occurrence of the external cause; Y99.8 Other external cause status; G62.9 Polyneuropathy, unspecified; Z88.1 Allergy status to other antibiotic agents; Z88.8 Allergy status to other drugs, medicaments and biological substances
CPT/HCPCS: 36415; 71275; 73080; 74177; 80048; 80053; 81001; 82274; 83605; 83735; 84145; 85025; 85379; 87045; 87493; 93005; 93306; 96365; 96375; J1170; J1200; J1650; J2405; J3480; J3490; J7030; J7040; J7512; Q0162; Q9966; Q9967; 99285-25

== ENCOUNTER 2018-10-18 14:45 | Emergency (ER) | payer BC ==
[~2018-10-18] VITALS: Ht 160 cm; Wt 69.5 kg
[~2018-10-18 14:45] MED LIST changes: -OMEP20CA10 PO; +OMEP20CA9 PO; +PRED1TAB PO; +PRED20TA PO; +PRED5TAB PO; +TIZA4TAB PO; -TIZA4TAB2 PO
[2018-10-18] MEDS ORDERED: IV NORMAL SALINE 1,000ML 1,000 ML IV SCH (15:30)
[2018-10-18 15:49] LABS: BASO % 0 % (0-3); EOS # 0.4 x10^3/uL (0.0-0.7); EOS % 5 % (0-3); HEMATOCRIT 39.5 % (36.0-47.0); HEMOGLOBIN 12.7 g/dL (12.0-15.5); LYMPH # 0.9 x10^3/uL (1.0-4.8); LYMPH % 12 % (24-48); MEAN CORPUSCULAR HEMOGLOBIN 25 pg (25-35); MEAN CORPUSCULAR HGB CONC 32 g/dL (31-37); MEAN CORPUSCULAR VOLUME 77 fL (79-100); MONO # 0.4 x10^3/uL (0.0-1.1); MONO % 5 % (0-9); NEUT # 5.4 x10^3uL (1.8-7.7); NEUT % 77 % (31-73); PLATELET COUNT 266 x10^3/uL (140-400); RED CELL DISTRIBUTION WIDTH 17.1 % (11.5-14.5)
[2018-10-18 15:58] LABS: BILIRUBIN,URINE NEG (NEG); CLARITY,URINE HAZY; COLOR,URINE YELLOW; GLUCOSE,URINE NEG (NEG); NITRITE,URINE NEG (NEG); UROBILINOGEN,URINE 0.2 mg/dL (0.2 mg/dL)
[2018-10-18 15:59] LABS: ALBUMIN 3.6 g/dL (3.4-5.0); ALBUMIN/GLOBULIN RATIO 0.7 (1.0-1.7); CALCIUM 8.6 mg/dL (8.5-10.1); CREATININE 0.7 mg/dL (0.6-1.0); GFR 104.7; POTASSIUM 3.4 mmol/L (3.5-5.1); TOTAL BILIRUBIN 0.3 mg/dL (0.2-1.0); TOTAL PROTEIN 8.9 g/dL (6.4-8.2)
[2018-10-18 15:59] LABS: BACTERIA,URINE 0 /HPF (0-FEW); SQUAMOUS EPITHELIAL CELL,UR OCC /LPF; WBC,URINE OCC /HPF (0-4)
[2018-10-18] MEDS ORDERED: KETOROLAC 30 MG/ML VIAL. IV ONE (16:30)
[2018-10-18] MEDS ORDERED: POTASSIUM CHLORIDE 20 MEQ TABLET.ER. PO ONE (16:30)
--- NOTE | 2018-10-18 16:35 | PHYS DOC ---
Past History Past Medical History: GERD, Hypertension, Other Past Surgical History: Tubal ligation Alcohol Use: None Drug Use: None Adult General Chief Complaint Chief Complaint: diarrhea and headache HPI HPI Patient is a 58 year old female who presents with complaining of diarrhea and headache since last night. Patient states she had 2 episodes of diarrhea with mild cramping abdominal pain since last night. Patient also complaining of nausea and constant headache without neck pain. Patient denies fever and chills and urinary symptom, vomiting. She had sick contacts at home. Patient was seen at her primary care physician office and had fever and sent to ER for evaluation. Patient states she had the same problem a few weeks ago and had dehydration and hypocalcemia and was admitted at Hospital for a few days. Review of Systems Review of Systems Constitutional: Denies fever or chills [] Eyes: Denies change in visual acuity, redness, or eye pain [] HENT: Denies nasal congestion or sore throat [] Respiratory: Denies cough or shortness of breath [] Cardiovascular: No additional information not addressed in HPI [] GI: Reports abdominal pain, nausea, diarrhea [] : Denies dysuria or hematuria [] Musculoskeletal: Denies back pain or joint pain [] Integument: Denies rash or skin lesions [] Neurologic: Reports headache, denies focal weakness or sensory changes [] Endocrine: Denies polyuria or polydipsia [] All other systems were reviewed and found to be within normal limits, except as documented in this note. Current Medications Current Medications Current Medications Medications (Trade) Dose Ordered Sig/Cassi Start Time Stop Time Status Last Admin Dose Admin Ketorolac Tromethamine (Toradol 30mg Vial) 30 mg 1X ONCE 10/18/18 16:30 10/18/18 16:31 Potassium Chloride (Klor-Con) 40 meq 1X ONCE 10/18/18 16:30 10/18/18 16:31 Sodium Chloride 1,000 ml @ 1,000 mls/hr Q1H 10/18/18 15:30 10/18/18 16:29 10/18/18 15:32 1,000 MLS/HR Allergies Allergies Allergies Coded Allergies Type Severity Reaction Last Updated Verified SCOTT Inhibitors Allergy Intermediate Swelling 09/30/18 Yes Sulfa (Sulfonamide Antibiotics) Allergy Intermediate Rash 09/30/18 Yes erythromycin base Allergy Intermediate 09/30/18 Yes vancomycin Adverse Reaction Intermediate Swelling 09/30/18 Yes Physical Exam Physical Exam Constitutional: Well developed, well nourished, mild acute distress, non-toxic appearance, afebrile in several checking. [] HENT: Normocephalic, atraumatic, oropharynx moist, no oral exudates, nose normal. [] Eyes: PERRLA, EOMI, conjunctiva normal, no discharge. [] Neck: Normal range of motion, no tenderness, supple, no stridor. [] Cardiovascular:Heart rate regular rhythm, no murmur [] Lungs & Thorax: Bilateral breath sounds clear to auscultation [] Abdomen: Bowel sounds normal, soft, no tenderness, no masses, no pulsatile masses. [] Skin: Warm, dry, no erythema, no rash. [] Back: No tenderness, no CVA tenderness. [] Extremities: No tenderness, no cyanosis, no clubbing, ROM intact, no edema. [] Neurologic: Alert and oriented X 3, normal motor function, normal sensory function, no focal deficits noted. [] Psychologic: Affect normal, judgement normal, mood normal. [] Current Patient Data Vital Signs Vital Signs Date Time Temp Pulse Resp B/P (MAP) Pulse Ox O2 Delivery O2 Flow Rate FiO2 10/18/18 15:35 79 16 123/86 (98) 99 Room Air 10/18/18 14:45 98.3 Lab Results Laboratory Tests Test 10/18/18 15:20 10/18/18 15:28 Urine Collection Type Unknown Urine Color Yellow Urine Clarity Hazy Urine pH 5.5 Urine Specific [place] 1.025 Urine Protein Neg (NEG-TRACE) Urine Glucose (UA) Neg mg/dL (NEG) Urine Ketones (Stick) Neg mg/dL (NEG) Urine Blood Trace (NEG) Urine Nitrite Neg (NEG) Urine Bilirubin Neg (NEG) Urine Urobilinogen Dipstick 0.2 mg/dL (0.2 mg/dL) Urine Leukocyte Esterase Neg (NEG) Urine RBC 1-2 /HPF (0-2) Urine WBC Occ /HPF (0-4) Urine Squamous Epithelial Cells Occ /LPF Urine Bacteria 0 /HPF (0-FEW) White Blood Count 7.0 x10^3/uL (4.0-11.0) Red Blood Count 5.10 x10^6/uL (3.50-5.40) Hemoglobin 12.7 g/dL (12.0-15.5) Hematocrit 39.5 % (36.0-47.0) Mean Corpuscular Volume 77 fL (79-100) L Mean Corpuscular Hemoglobin 25 pg (25-35) Mean Corpuscular Hemoglobin Concent 32 g/dL (31-37) Red Cell Distribution Width 17.1 % (11.5-14.5) H Platelet Count 266 x10^3/uL (140-400) Neutrophils (%) (Auto) 77 % (31-73) H Lymphocytes (%) (Auto) 12 % (24-48) L Monocytes (%) (Auto) 5 % (0-9) Eosinophils (%) (Auto) 5 % (0-3) H Basophils (%) (Auto) 0 % (0-3) Neutrophils # (Auto) 5.4 x10^3uL (1.8-7.7) Lymphocytes # (Auto) 0.9 x10^3/uL (1.0-4.8) L Monocytes # (Auto) 0.4 x10^3/uL (0.0-1.1) Eosinophils # (Auto) 0.4 x10^3/uL (0.0-0.7) Basophils # (Auto) 0.0 x10^3/uL (0.0-0.2) Sodium Level 141 mmol/L (136-145) Potassium Level 3.4 mmol/L (3.5-5.1) L Chloride Level 103 mmol/L (98-107) Carbon Dioxide Level 29 mmol/L (21-32) Anion Gap 9 (6-14) Blood Urea Nitrogen 12 mg/dL (7-20) Creatinine 0.7 mg/dL (0.6-1.0) Estimated GFR (Cockcroft-Gault) 104.7 BUN/Creatinine Ratio 17 (6-20) Glucose Level 83 mg/dL (70-99) Calcium Level 8.6 mg/dL (8.5-10.1) Total Bilirubin 0.3 mg/dL (0.2-1.0) Aspartate Amino Transferase (AST) 18 U/L (15-37) Alanine Aminotransferase (ALT) 28 U/L (14-59) Alkaline Phosphatase 91 U/L (46-116) Total Protein 8.9 g/dL (6.4-8.2) H Albumin 3.6 g/dL (3.4-5.0) Albumin/Globulin Ratio 0.7 (1.0-1.7) L Lipase 134 U/L (73-393) EKG EKG [] Radiology/Procedures Radiology/Procedures [address] [id number] IMAGING REPORT Signed PATIENT: JESSE CHOI ACCOUNT: [id number] : 1960 LOCATION: ER AGE: 58 SEX: F EXAM STATUS: REG ER ORD. PHYSICIAN: ANOOP BOBBY MD REASON: headache PROCEDURE: CT HEAD WO CONTRAST EXAM: Head CT without contrast. HISTORY: Fall. Lightheadedness. TECHNIQUE: Computed tomographic images of the head were obtained without contrast. *One or more of the following individualized dose reduction techniques were utilized for this examination: 1. Automated exposure control. 2. Adjustment of the mA and/or kV according to patient size. 3. Use of iterative reconstruction technique. COMPARISON: None. FINDINGS: There is no acute or subacute extra-axial or intraparenchymal hemorrhage. There is no mass effect or midline shift. There is no hydrocephalus. The mills-white matter differentiation pattern is intact. The visualized portions of the orbits, paranasal sinuses and mastoid air cells are unremarkable. No suspicious calvarial lesion is seen. IMPRESSION: No acute intracranial findings. Electronically signed by: Marleni Langford MD (10/18/2018 4:36 PM) [place] [id number] DICTATED AND SIGNED BY: MARLENI LANGFORD MD DATE: 10/18/18 [id number] CC: ZAKIA STARKEY MD; ANOOP BOBBY MD ~ Course & Med Decision Making Course & Med Decision Making Pertinent Labs and Imaging studies reviewed. (See chart for details) Evaluation of patient in ER showed 58-year-old patient from primary care physician office fever of 103 and diarrhea. Patient was afebrile in several checking to ER. CBC and CMP was unremarkable except for potassium of 3.4. Patient treated with IV fluid and Toradol and felt better and tolerated oral intake. CT of head was unremarkable. Plan discharge patient home to diagnose of viral enteritis. Dr. Starkey informed about plan of care. Dragon Disclaimer Dragon Disclaimer This electronic medical record was generated, in whole or in part, using a voice recognition dictation system. Departure Departure: Impression: Primary Impression: Viral enteritis Additional Impressions: Hypokalemia Headache Disposition: HOME, SELF-CARE (at 1647) Condition: IMPROVED Referrals: ZAKIA STARKEY MD (PCP) Patient Instructions: Diet for Diarrhea, Adult, Tension Headache, Viral Gastroenteritis Additional Instructions: Drink plenty of liquids Follow-up with your primary care physician in 3-5 days Return to ER if not getting better Scripts Acetaminophen With Codeine (TYLENOL WITH CODEINE #3 TABLET) 1 Each Tablet 1 TAB PO Q6HRS for headache, #14 TAB Prov: ANOOP BOBBY MD 10/18/18 Problem Qualifiers Additional Impressions: Headache Headache type: tension-type ANOOP BOBBY MD Oct 18, 2018 16:35
--- NOTE | 2018-10-18 16:39 | RAD ---
EXAM: Head CT without contrast. HISTORY: Fall. Lightheadedness. TECHNIQUE: Computed tomographic images of the head were obtained without contrast. *One or more of the following individualized dose reduction techniques were utilized for this examination: 1. Automated exposure control. 2. Adjustment of the mA and/or kV according to patient size. 3. Use of iterative reconstruction technique. COMPARISON: None. FINDINGS: There is no acute or subacute extra-axial or intraparenchymal hemorrhage. There is no mass effect or midline shift. There is no hydrocephalus. The mills-white matter differentiation pattern is intact. The visualized portions of the orbits, paranasal sinuses and mastoid air cells are unremarkable. No suspicious calvarial lesion is seen. IMPRESSION: No acute intracranial findings. Electronically signed by: Marleni Archuleta MD (10/18/2018 4:36 PM) [place] [id number]
[2018-10-18 16:45] VITALS: BP 122/86
[2018-10-18] MEDS ORDERED: ACET-704 PO (16:49)
== END 2018-10-18 17:05 | disposition home or self-care (01) ==
LOC: ER 14:45
DX: A08.4 Viral intestinal infection, unspecified (principal); E87.6 Hypokalemia; R51 Headache; R42 Dizziness and giddiness; K21.9 Gastro-esophageal reflux disease without esophagitis; I10 Essential (primary) hypertension; Z98.51 Tubal ligation status; Z88.2 Allergy status to sulfonamides; Z88.1 Allergy status to other antibiotic agents; Z88.8 Allergy status to other drugs, medicaments and biological substances
CPT/HCPCS: 36415; 70450; 80053; 81001; 83690; 85025; 96361; 96374; 99284; J1885; J7030

== ENCOUNTER 2019-02-24 12:14 | Emergency (ER) | payer BC ==
[~2019-02-24] VITALS: Ht 160 cm; Wt 77.0 kg
[~2019-02-24 12:14] MED LIST changes: +ACET-704 PO; +OMEP20CA10 PO; -OMEP20CA9 PO
[2019-02-24 12:45] LABS: BASO % 1 % (0-3); EOS % 0 % (0-3); HEMATOCRIT 42.3 % (36.0-47.0); HEMOGLOBIN 13.4 g/dL (12.0-15.5); LYMPH % 13 % (24-48); MEAN CORPUSCULAR HEMOGLOBIN 25 pg (25-35); MEAN CORPUSCULAR HGB CONC 32 g/dL (31-37); MEAN CORPUSCULAR VOLUME 78 fL (79-100); MONO # 0.6 x10^3/uL (0.0-1.1); MONO % 8 % (0-9); NEUT # 6.3 x10^3uL (1.8-7.7); NEUT % 79 % (31-73); PLATELET COUNT 226 x10^3/uL (140-400); RED BLOOD COUNT 5.45 x10^6/uL (3.50-5.40); RED CELL DISTRIBUTION WIDTH 16.1 % (11.5-14.5)
[2019-02-24] MEDS ORDERED: METOCLOPRAMIDE HCL 10 MG/2 ML VIAL. IV ONE (12:45)
[2019-02-24] MEDS ORDERED: diphenhydrAMINE 50 MG/ML VIAL IVP ONE (12:45)
[2019-02-24] MEDS ORDERED: IV NORMAL SALINE 1,000ML 1,000 ML IV ONE (12:45)
[2019-02-24] MEDS ORDERED: KETOROLAC 30 MG/ML VIAL. IV ONE (12:45)
[2019-02-24 13:00] LABS: ALBUMIN 3.8 g/dL (3.4-5.0); ALBUMIN/GLOBULIN RATIO 0.7 (1.0-1.7); CALCIUM 9.3 mg/dL (8.5-10.1); CREATININE 0.6 mg/dL (0.6-1.0); GFR 125.1; TOTAL BILIRUBIN 0.5 mg/dL (0.2-1.0)
[2019-02-24 13:28] LABS: BACTERIA,URINE MOD /HPF (0-FEW); BILIRUBIN,URINE NEG (NEG); CLARITY,URINE HAZY; COLOR,URINE YELLOW; GLUCOSE,URINE NEG (NEG); NITRITE,URINE NEG (NEG); SQUAMOUS EPITHELIAL CELL,UR MANY /LPF; UROBILINOGEN,URINE 0.2 mg/dL (0.2 mg/dL)
--- NOTE | 2019-02-24 13:40 | PHYS DOC ---
Past History Past Medical History: GERD, Hypertension, Other Past Surgical History: Tubal ligation Alcohol Use: None Drug Use: None Adult General Chief Complaint Chief Complaint: HEADACHE HPI HPI 58-year-old female presents from her PCPs office with 3 day history of headache. She went to Dr. Rico's office for a regular appointment for RUQ abdominal pain. Since she was having a prolonged headache with nausea he thought it best that she be further evaluated in the ED. Patient tells me that his bilateral in the temporal area. It is more severe than the headaches that she usually gets. She does get the occasional migraine. She denies fever or chills. She does not have any change in vision. She denies trauma or falls. Review of Systems Review of Systems Constitutional: Denies fever or chills [] Eyes: Denies change in visual acuity, redness, or eye pain [] HENT: Denies nasal congestion or sore throat [] Respiratory: Denies cough or shortness of breath [] Cardiovascular: No additional information not addressed in HPI [] GI: Nausea. Denies vomiting, bloody stools or diarrhea [] : Denies dysuria or hematuria [] Musculoskeletal: Denies back pain or joint pain [] Integument: Denies rash or skin lesions [] Neurologic: Headache. Denies focal weakness or sensory changes [] Endocrine: Denies polyuria or polydipsia [] All other systems were reviewed and found to be within normal limits, except as documented in this note. Current Medications Current Medications Current Medications Medications (Trade) Dose Ordered Sig/Cassi Start Time Stop Time Status Last Admin Dose Admin Diphenhydramine HCl (Benadryl) 25 mg 1X ONCE 02/24/19 12:45 02/24/19 12:46 DC 02/24/19 13:01 25 MG Ketorolac Tromethamine (Toradol 30mg Vial) 30 mg 1X ONCE 02/24/19 12:45 02/24/19 12:46 DC 02/24/19 13:01 30 MG Metoclopramide HCl (Reglan Vial) 10 mg 1X ONCE 02/24/19 12:45 02/24/19 12:46 DC 02/24/19 13:01 10 MG Sodium Chloride 1,000 ml @ 1,000 mls/hr 1X ONCE 02/24/19 12:45 02/24/19 13:44 02/24/19 13:01 1,000 MLS/HR Allergies Allergies Allergies Coded Allergies Type Severity Reaction Last Updated Verified SCOTT Inhibitors Allergy Intermediate Swelling 09/30/18 Yes Sulfa (Sulfonamide Antibiotics) Allergy Intermediate Rash 09/30/18 Yes erythromycin base Allergy Intermediate 09/30/18 Yes vancomycin Adverse Reaction Intermediate Swelling 09/30/18 Yes Physical Exam Physical Exam Constitutional: Well developed, well nourished, no acute distress, non-toxic appearance. [] HENT: Normocephalic, atraumatic, bilateral external ears normal, oropharynx moist, no oral exudates, nose normal. [] Eyes: PERRLA, EOMI, conjunctiva normal, no discharge. Photophobia[] Neck: Normal range of motion, no tenderness, supple, no stridor. [] Cardiovascular:Heart rate regular rhythm, no murmur [] Lungs & Thorax: Bilateral breath sounds clear to auscultation [] Abdomen: Bowel sounds normal, soft, no tenderness, no masses, no pulsatile masses. [] Skin: Warm, dry, no erythema, no rash. [] Back: No tenderness, no CVA tenderness. [] Extremities: No tenderness, no cyanosis, no clubbing, ROM intact, no edema. [] Neurologic: Alert and oriented X 3, normal motor function, normal sensory function, no focal deficits noted. [] Psychologic: Affect normal, judgement normal, mood normal. [] Current Patient Data Vital Signs Vital Signs Date Time Temp Pulse Resp B/P (MAP) Pulse Ox O2 Delivery O2 Flow Rate FiO2 02/24/19 12:24 98.6 82 20 100 Room Air Lab Results Laboratory Tests Test 02/24/19 12:38 02/24/19 13:00 White Blood Count 8.0 x10^3/uL (4.0-11.0) Red Blood Count 5.45 x10^6/uL (3.50-5.40) H Hemoglobin 13.4 g/dL (12.0-15.5) Hematocrit 42.3 % (36.0-47.0) Mean Corpuscular Volume 78 fL (79-100) L Mean Corpuscular Hemoglobin 25 pg (25-35) Mean Corpuscular Hemoglobin Concent 32 g/dL (31-37) Red Cell Distribution Width 16.1 % (11.5-14.5) H Platelet Count 226 x10^3/uL (140-400) Neutrophils (%) (Auto) 79 % (31-73) H Lymphocytes (%) (Auto) 13 % (24-48) L Monocytes (%) (Auto) 8 % (0-9) Eosinophils (%) (Auto) 0 % (0-3) Basophils (%) (Auto) 1 % (0-3) Neutrophils # (Auto) 6.3 x10^3uL (1.8-7.7) Lymphocytes # (Auto) 1.0 x10^3/uL (1.0-4.8) Monocytes # (Auto) 0.6 x10^3/uL (0.0-1.1) Eosinophils # (Auto) 0.0 x10^3/uL (0.0-0.7) Basophils # (Auto) 0.0 x10^3/uL (0.0-0.2) Sodium Level 137 mmol/L (136-145) Potassium Level 4.0 mmol/L (3.5-5.1) Chloride Level 100 mmol/L (98-107) Carbon Dioxide Level 28 mmol/L (21-32) Anion Gap 9 (6-14) Blood Urea Nitrogen 9 mg/dL (7-20) Creatinine 0.6 mg/dL (0.6-1.0) Estimated GFR (Cockcroft-Gault) 125.1 BUN/Creatinine Ratio 15 (6-20) Glucose Level 81 mg/dL (70-99) Calcium Level 9.3 mg/dL (8.5-10.1) Total Bilirubin 0.5 mg/dL (0.2-1.0) Aspartate Amino Transferase (AST) 48 U/L (15-37) H Alanine Aminotransferase (ALT) 41 U/L (14-59) Alkaline Phosphatase 89 U/L (46-116) Total Protein 9.0 g/dL (6.4-8.2) H Albumin 3.8 g/dL (3.4-5.0) Albumin/Globulin Ratio 0.7 (1.0-1.7) L Urine Collection Type Unknown Urine Color Yellow Urine Clarity Hazy Urine pH 6.5 Urine Specific [place] 1.025 Urine Protein Neg (NEG-TRACE) Urine Glucose (UA) Neg mg/dL (NEG) Urine Ketones (Stick) Neg mg/dL (NEG) Urine Blood Mod (NEG) Urine Nitrite Neg (NEG) Urine Bilirubin Neg (NEG) Urine Urobilinogen Dipstick 0.2 mg/dL (0.2 mg/dL) Urine Leukocyte Esterase Small (NEG) Urine RBC 6-10 /HPF (0-2) Urine WBC 5-10 /HPF (0-4) Urine Squamous Epithelial Cells Many /LPF Urine Bacteria Mod /HPF (0-FEW) Urine Mucus Marked /LPF EKG EKG [] Radiology/Procedures Radiology/Procedures [] Course & Med Decision Making Course & Med Decision Making Pertinent Labs and Imaging studies reviewed. (See chart for details) The patient's labs are unremarkable. Her urinalysis is suggestive of UTI. I will treat her with Macrobid for 5 days. Her her headache, we gave her 1 L normal saline, 25 mg of Benadryl, 30 mg of Toradol, 10 mg of Reglan. After period of rest, the patient is feeling much better. Her headache pressure is greatly reduced. She is stable for discharge at this time. [] Dragon Disclaimer Dragon Disclaimer This electronic medical record was generated, in whole or in part, using a voice recognition dictation system. Departure Departure: Impression: Primary Impression: Headache Additional Impression: UTI (urinary tract infection) Disposition: HOME, SELF-CARE Condition: STABLE Referrals: ZAKIA RICO MD (PCP) Patient Instructions: General Headache Without Cause, Rvto-hy-Cnsg, Urinary Tract Infection, [id number] Scripts Nitrofurantoin Monohyd/M-Cryst (MACROBID 100 MG CAPSULE) 100 Mg Capsule 1 CAP PO BID for UTI, #10 CAP Prov: HOUSTON SHAVER DO 02/24/19 Problem Qualifiers Primary Impression: Headache Headache type: tension-type Headache chronicity pattern: acute headache Intractability: intractable Qualified Codes: G44.201 - Tension-type headache, unspecified, intractable Additional Impression: UTI (urinary tract infection) Urinary tract infection type: acute cystitis Hematuria presence: with hematuria Qualified Codes: N30.01 - Acute cystitis with hematuria HOUSTON SHAVER DO Feb 24, 2019 13:40
[2019-02-24] MEDS ORDERED: NITR100C62 PO (14:45)
[2019-02-24 15:00] VITALS: BP 124/73
== END 2019-02-24 15:00 | disposition home or self-care (01) ==
LOC: ER 12:14
DX: G44.201 Tension-type headache, unspecified, intractable (principal); N30.01 Acute cystitis with hematuria; K21.9 Gastro-esophageal reflux disease without esophagitis; I10 Essential (primary) hypertension; Z98.51 Tubal ligation status; Z88.2 Allergy status to sulfonamides; Z88.1 Allergy status to other antibiotic agents; Z88.8 Allergy status to other drugs, medicaments and biological substances
CPT/HCPCS: 36415; 80053; 81001; 85025; 87086; 96374; 96375; 99284; J1200; J1885; J2765; J7030

== ENCOUNTER → 2021-05-23 | Outpatient (CLI) | payer BC ==
[~2021-05-23] MED LIST changes: -LISI-334 PO; +LISI20TA18 PO; +NITR100C62 PO; -OMEP20CA10 PO; +OMEP20CA16 PO; -PANT20TA3 PO; +PANT20TA4 PO; -TIZA4TAB PO; +TIZA4TAB2 PO; -VANC1.5P20 IV; +[UNRECOGNIZED DRUG - CODE] IV
[2021-05-23 13:41] LABS: BASO # 0.1 x10^3/uL (0.0-0.2); BASO % 1 % (0-3); EOS # 0.5 x10^3/uL (0.0-0.7); EOS % 5 % (0-3); HEMATOCRIT 37.6 % (36.0-47.0); HEMOGLOBIN 12.1 g/dL (12.0-15.5); LYMPH # 2.4 x10^3/uL (1.0-4.8); LYMPH % 26 % (24-48); MEAN CORPUSCULAR HEMOGLOBIN 25 pg (25-35); MEAN CORPUSCULAR HGB CONC 32 g/dL (31-37); MEAN CORPUSCULAR VOLUME 78 fL (79-100); MONO # 0.6 x10^3/uL (0.0-1.1); MONO % 7 % (0-9); NEUT # 5.6 x10^3uL (1.8-7.7); NEUT % 61 % (31-73); PLATELET COUNT 340 x10^3/uL (140-400); RED BLOOD COUNT 4.81 x10^6/uL (3.50-5.40); RED CELL DISTRIBUTION WIDTH 16.1 % (11.5-14.5); WHITE BLOOD COUNT 9.1 x10^3/uL (4.0-11.0)
[2021-05-23 13:49] LABS: ALBUMIN 3.7 g/dL (3.4-5.0); ALBUMIN/GLOBULIN RATIO 0.7 (1.0-1.7); CREATININE 0.6 mg/dL (0.6-1.0); GFR 123.8; POTASSIUM 3.2 mmol/L (3.5-5.1); TOTAL BILIRUBIN 0.3 mg/dL (0.2-1.0); TOTAL PROTEIN 9.2 g/dL (6.4-8.2)
[2021-05-23 14:02] LABS: BACTERIA,URINE FEW /HPF (0-FEW); BILIRUBIN,URINE NEG (NEG); CLARITY,URINE HAZY; COLOR,URINE YELLOW; GLUCOSE,URINE NEG (NEG); NITRITE,URINE NEG (NEG); SQUAMOUS EPITHELIAL CELL,UR OCC /LPF; UROBILINOGEN,URINE 0.2 mg/dL (0.2 mg/dL)
[2021-05-24 10:21] LABS: THYROID STIM HORMONE (TSH) 0.548 uIU/mL (0.358-3.740)
== END ==
LOC: LAB 13:00
PROVIDERS: ATTEND Nurse Practitioner Adult Health
DX: Z00.01 Encounter for general adult medical examination with abnormal findings (principal); E53.8 Deficiency of other specified B group vitamins; E55.9 Vitamin D deficiency, unspecified
CPT/HCPCS: 36415; 80053; 80061; 81001; 82306; 82607; 84443; 85025; 87086

== ENCOUNTER → 2021-11-25 | Outpatient (CLI) | payer BC ==
[~2021-11-25] MED LIST changes: +IOHEXOL 350 MG/ML 100 ML VIAL. IV ONE; +IOHEXOL 350 MG/ML 100 ML VIAL. ONE; +TIZA-75 PO; -TIZA4TAB2 PO
--- NOTE | 2021-11-25 12:05 | RAD ---
EXAMINATION: CTA CHEST CLINICAL HISTORY: Shortness of breath, elevated d-dimer. Technique: Spiral CT acquisition of the chest from the thoracic inlet to the upper abdomen following IV contrast with coronal and sagittal reformatted images also provided for review. 3D maximum intensi ty projection images also performed. CT Dose Reduction Employed: One or more of the following individualized dose reduction techniques wer e utilized for this examination: 1. Automated exposure control 2. Adjustment of the mA and/or kV ac cording to patient size 3. Use of iterative reconstruction technique. COMPARISON: 09/30/2018 FINDINGS: Pulmonary Vasculature: No evidence of main, lobar, or segmental pulmonary arterial thrombus. Lung Parenchyma, Pleura, and Airways: No focal consolidation. Mild subsegmental atelectasis in the de pendent lungs. No pleural effusion. Central airways patent. Lower Neck, Lymph Nodes, and Mediastinum: Visualized thyroid gland within normal limits. No mediastin al, hilar, or axillary lymphadenopathy. Heart, Pericardium, and Thoracic Vessels: Borderline cardiomegaly, similar to prior study. No pericar dial effusion. Thoracic aorta within normal limits. No coronary artery atherosclerotic calcifications are noted, although the study is not optimized for coronary assessment. Bones and Soft Tissues: Mild degenerative changes of the thoracic spine. Upper Abdomen: Small area of hypoattenuation in the hepatic parenchyma along the anterior gallbladder fossa, likely related to focal steatosis. Cholecystectomy. IMPRESSION: No evidence of main, lobar, or segmental pulmonary embolism. Electronically signed by: Jose D Fitzpatrick DO (11/25/2021 12:01 PM) [id number]
== END ==
LOC: CT 09:28
PROVIDERS: ATTEND Family Medicine
DX: J98.11 Atelectasis (principal); M47.814 Spondylosis without myelopathy or radiculopathy, thoracic region; Z90.49 Acquired absence of other specified parts of digestive tract
CPT/HCPCS: 71275; Q9967